=== PATIENT | female | born 1940 | race Caucasian/White ===

== ENCOUNTER 2019-06-06 16:48 | Emergency (ER) | payer OTHER ==
[2019-06-06 17:47] VITALS: BMI 24.0
[2019-06-06] MEDS ORDERED: ACETAMINOPHEN 325 MG TABLET (FP) PO ONE (18:36)
[2019-06-06] MEDS ORDERED: ACETAMINOPHEN 1000 MG/100 ML VIAL (NON FORMULARY) IVPB ONE (19:01)
[2019-06-06] MEDS ORDERED: ACETAMINOPHEN INJECTION 100 ML IVPB ONE (19:50)
[2019-06-06] MEDS ORDERED: morphine CARPU-JECT 4 MG/1 ML DISP.SYRIN IVPUSH PRN (20:29)
[2019-06-06 20:31] LABS: BASO % 0.2 % (0-2.0); EOS % 0.2 % (0-4.5); HEMATOCRIT 40.6 % (32.4-45.2); HEMOGLOBIN 13.5 GM/dL (10.7-15.3); LYMPH % 8.5 % (8-40); MCH 31.5 pg (25.7-33.7); MCHC 33.3 g/dl (32.0-36.0); MEAN CELL VOLUME 94.5 fl (80-96); MEAN PLT VOLUME 9.1 fl (7.5-11.1); MONO % 6.5 % (3.8-10.2); NEUT % 84.6 % (42.8-82.8); PLATELET COUNT 216 K/MM3 (134-434); RBC 4.29 M/mm3 (3.60-5.2); RDW 14.4 % (11.6-15.6); WHITE BLOOD COUNT 12.9 K/mm3 (4.0-10.0)
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
[2019-06-06 20:36] LABS: ALBUMIN 4.2 g/dl (3.4-5.0); BILIRUBIN,TOTAL 0.3 mg/dL (0.2-1); BLOOD UREA NITROGEN 24.2 mg/dL (7-18); CALCIUM 9.4 mg/dL (8.5-10.1); POTASSIUM 4.4 mmol/L (3.5-5.1); TOT PROT 6.8 g/dl (6.4-8.2)
[2019-06-06 22:06] LABS: PLATELET ESTIMATE ADEQUATE
[2019-06-06] MEDS ORDERED: MORPHINE SULFATE 2 MG/ML VIAL ONE (22:23)
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
[2019-06-07] MEDS ORDERED: KETOROLAC TROMETHAMINE 30 MG/1 ML VIAL IVPUSH ONE (00:21)
[2019-06-07] MEDS ORDERED: KETOROLAC TROMETHAMINE 30 MG/1 ML VIAL ONE (00:24)
[2019-06-07] MEDS ORDERED: morphine CARPU-JECT 4 MG/1 ML DISP.SYRIN IVPUSH ONE (00:55)
[2019-06-07] MEDS ORDERED: MORPHINE SULFATE 2 MG/ML VIAL ONE (01:43)
[2019-06-07 02:10] VITALS: BP 135/64; PULSE 89
[2019-06-07 02:30] VITALS: TEMP 99.8
--- NOTE | 2019-06-07 10:02 | EKG ---
Test Reason : Blood Pressure : / mmHG Vent. Rate : 092 BPM Atrial Rate : 092 BPM P-R Int : 172 ms QRS Dur : 118 ms QT Int : 384 ms P-R-T Axes : 074 042 056 degrees QTc Int : 474 ms NORMAL SINUS RHYTHM RIGHT BUNDLE BRANCH BLOCK ABNORMAL ECG NO PREVIOUS ECGS AVAILABLE Confirmed by JENISE ALANIZ MD ([id number]) on 06/07/2019 10:02:09 AM Referred By: Confirmed By:JENISE ALANIZ MD
--- NOTE | 2019-06-07 10:04 | EKG ---
Test Reason : Blood Pressure : / mmHG Vent. Rate : 109 BPM Atrial Rate : 109 BPM P-R Int : 178 ms QRS Dur : 120 ms QT Int : 358 ms P-R-T Axes : 076 044 065 degrees QTc Int : 482 ms SINUS TACHYCARDIA WITH OCCASIONAL PREMATURE VENTRICULAR COMPLEXES RIGHT BUNDLE BRANCH BLOCK SEPTAL INFARCT , AGE UNDETERMINED ABNORMAL ECG NO PREVIOUS ECGS AVAILABLE Confirmed by JENISE ALANIZ MD ([id number]) on 06/07/2019 10:04:27 AM Referred By: Confirmed By:JENISE ALANIZ MD
== END 2019-06-07 02:53 | disposition short-term general hospital (02) ==
LOC: JER 16:48
PROC: 3E033NZ Introduction of Analgesics, Hypnotics, Sedatives into Peripheral Vein, Percutaneous Approach (ICD-10-PCS; principal; 2019-06-06)
PROC: 3E033NZ Introduction of Analgesics, Hypnotics, Sedatives into Peripheral Vein, Percutaneous Approach (ICD-10-PCS; 2019-06-06)
PROC: 3E0333Z Introduction of Anti-inflammatory into Peripheral Vein, Percutaneous Approach (ICD-10-PCS; 2019-06-06)
DX: S22.20XA Unspecified fracture of sternum, initial encounter for closed fracture (principal); S22.038A Other fracture of third thoracic vertebra, initial encounter for closed fracture; S22.058A Other fracture of T5-T6 vertebra, initial encounter for closed fracture; V43.62XA Car passenger injured in collision with other type car in traffic accident, initial encounter; Y92.488 Other paved roadways as the place of occurrence of the external cause; Y93.89 Activity, other specified; Y99.8 Other external cause status; R74.8 Abnormal levels of other serum enzymes; I25.10 Atherosclerotic heart disease of native coronary artery without angina pectoris; Z95.5 Presence of coronary angioplasty implant and graft
CPT/HCPCS: 36415; 71045-TC-FY; 71250-TC; 80053; 82550; 82553; 84484; 85025; 93005; 93010; 99285-25; J0131